=== PATIENT | male | born 1995 | race Caucasian/White ===

== ENCOUNTER 2017-08-15 09:56 | Emergency (ER) | payer OTHER ==
[~2017-08-15] VITALS: Ht 170.2 cm; Wt 59.0 kg
[~2017-08-15 09:56] MED LIST: AMITRIPTYLINE H25 M2 PO; BENADRYL25 MG PO; COENZYME Q10100 MG PO; NOHOMEMEDICATIONS; PENNSAID112 GM TP; PHENERGAN 25 MG25 M1 PO; PHENERGAN 25 MG25 MG PO; PRILOSEC 20 MG20 MG PO; ROBAXIN 750 MG750 M1 PO
[2017-08-15] MEDS ORDERED: ADDERALL 20 MG20 MG PO (10:00)
[2017-08-15] MEDS ORDERED: XANAX 0.5 MG0.5 MG PO (10:01)
[2017-08-15 10:26] LABS: ABSOLUTE EOSINOPHILS 0.1 thou/uL (0.0-0.7); ABSOLUTE LYMPHOCYTES 1.7 thou/uL (0.8-5.3); ABSOLUTE MONOCYTES 0.8 thou/uL (0.0-1.2); ABSOLUTE NEUTROPHILS 8.5 thou/uL (1.6-8.1); BASOPHILS 0.4 %; EOSINOPHILS 1.1 %; HEMATOCRIT 46.3 % (42.0-52.0); HEMOGLOBIN 15.7 gm/dL (14.0-18.0); LYMPHOCYTES 14.9 %; MCH 30.7 pg (26.0-34.0); MCV 90.3 fL (80.0-100.0); MONOCYTES 7.1 %; MPV 9.5 fl. (7.2-11.1); NUCLEATED RBCS 0 /100WBC; PLATELET COUNT* 201 thou/uL (150-400); POLYS 76.5 %; RBC 5.13 mil/uL (4.50-6.00); RDW-CV 12.7 % (10.5-14.5); WBC 11.1 thou/uL (4.0-11.0)
[2017-08-15 10:34] LABS: CALCIUM 10.2 mg/dL (8.5-10.1); CREATININE 1.4 mg/dL (0.6-1.3); POTASSIUM 4.1 mmol/L (3.5-5.1)
[2017-08-15 10:39] LABS: ALBUMIN 4.9 g/dL (3.4-5.0); TOTAL BILIRUBIN 0.9 mg/dL (<0.1-1.0); TOTAL PROTEIN 8.2 g/dL (6.4-8.2)
[2017-08-15 13:17] LABS: URINE BILIRUBIN NEGATIVE (Negative); URINE BLOOD TRACE (Negative); URINE CLARITY CLEAR; URINE COLOR YELLOW; URINE GLUCOSE-RANDOM NEGATIVE (Negative); URINE LEUKOCYTES-REFLEX NEGATIVE (Negative); URINE NITRITE-REFLEX NEGATIVE (Negative); URINE PROTEIN 2+ (Negative); URINE SPECIFIC GRAVITY >= 1.030 (1.005-1.030); URINE UROBILINOGEN 0.2 E.U./dl (0.2-1.0)
[2017-08-15 13:20] LABS: URINE KETONES 3+ (Negative)
[2017-08-15 13:22] LABS: URINE REDUCING SUBSTANCE NEGATIVE (Negative)
[2017-08-15 13:25] LABS: AMP/METHAMP POSITIVE (Negative); BARBITURATES Negative (Negative); BENZODIAZEPINES POSITIVE (Negative); COCAINE Negative (Negative); METHADONE Negative (Negative); OPIATES POSITIVE (Negative); PCP Negative (Negative); THC POSITIVE (Negative)
[2017-08-15 13:29] LABS: AMORPHOUS URATES Few /LPF (None Seen); BACTERIA-REFLEX 1-9 Few /HPF (None Seen); FINE GRANULAR CASTS 0-3 Few /LPF (None Seen); HYALINE CASTS 0-3 Few /LPF (None Seen); SQUAMOUS 0-3 Few /LPF (0-3); URINE RBC 0-2 Rare /HPF (0-2); URINE WBC-REFLEX 0-5 Rare /HPF (0-5)
[2017-08-15] MEDS ORDERED: ZOFRAN ODT4 MG DISSOLVE (14:26)
[2017-08-15 14:50] VITALS: BP 123/67
[2017-08-16 07:07] LABS: HEPATITIS B SURFACE AG Negative (Negative)
== END 2017-08-15 14:56 | disposition home or self-care (01) ==
LOC: M.ERS 09:56
PROVIDERS: Nurse Practitioner Psychiatric/Mental Health
DX: G43.A0 Cyclical vomiting, in migraine, not intractable (principal); F12.10 Cannabis abuse, uncomplicated